=== PATIENT | female | born 1980 | race Caucasian/White ===

== ENCOUNTER 2024-08-05 10:59 | Outpatient (CLI) | payer OTHER, SELFPAY | END 2024-08-05 11:00 | disposition home or self-care (01) | LOC: LKVREF 11:01 | PROVIDERS: PCP Emergency Medicine; Visit Provider Emergency Medicine | DX: Z01.818 Encounter for other preprocedural examination (principal) | CPT/HCPCS: 80048 ==

== ENCOUNTER 2024-12-17 08:25 | Outpatient (CLI) | payer OTHER, SELFPAY | END 2024-12-17 08:26 | disposition home or self-care (01) | LOC: NFLDREF 12-27 00:51 | PROVIDERS: PCP Emergency Medicine; Referring Provider Emergency Medicine; Visit Provider Emergency Medicine | DX: Z00.01 Encounter for general adult medical examination with abnormal findings (principal); E03.9 Hypothyroidism, unspecified; Z13.6 Encounter for screening for cardiovascular disorders | CPT/HCPCS: 80053; 80061; 84439; 84443 ==

== ENCOUNTER 2025-03-19 14:46 | Outpatient (CLI) | payer OTHER, SELFPAY | END 2025-03-19 14:47 | disposition home or self-care (01) | LOC: NFLDREF 03-23 17:20 | PROVIDERS: Visit Provider Emergency Medicine | DX: E03.9 Hypothyroidism, unspecified (principal) | CPT/HCPCS: 84443 ==